=== PATIENT | male | born 1975 | race Caucasian/White ===

== ENCOUNTER → 2019-01-27 | Outpatient (REF) | payer OTHER | LOC: M SFHCLERA 11:27 | PROVIDERS: ATTEND Nurse Practitioner Family | DX: Z87.898 Personal history of other specified conditions (principal) ==

== ENCOUNTER → 2019-01-30 | Outpatient (CLI) | payer BC, OTHER ==
--- NOTE | 2019-01-30 12:19 | REP ---
PA and lateral chest: Comparison 08/24/2007. The lung meza are clear. The cardiac size is normal. The saud, mediastinum, and skeletal structures are unremarkable except for mild thoracic spine scoliosis convex right in the lower thoracic level. . Impression: Negative PA and lateral chest. There is no interval change. Electronically Signed by Gil Inman MD 01/30/2019 12:11 P
== END ==
LOC: M LRY 11:03
PROVIDERS: ATTEND Physician Assistant
DX: R50.9 Fever, unspecified (principal); R05 Cough

== ENCOUNTER → 2019-10-08 | Outpatient (CLI) | payer BC, OTHER ==
[2019-10-12 00:06] LABS: Lyme Disease IgG/IgM Antibodie <0.91 ISR (0.00-0.90); Lyme Disease IgM Ab Quantitati <0.80 index (0.00-0.79)
== END ==
LOC: M WUC 13:22
PROVIDERS: ATTEND Physician Assistant
DX: S70.362A Insect bite (nonvenomous), left thigh, initial encounter (principal)

== ENCOUNTER → 2020-03-29 | Outpatient (CLI) | payer BC, OTHER | LOC: M LABSMTC 10:14 | PROVIDERS: ATTEND Family Medicine | DX: Z11.59 Encounter for screening for other viral diseases (principal); Z20.828 Contact with and (suspected) exposure to other viral communicable diseases ==

== ENCOUNTER → 2020-10-23 | Outpatient (CLI) | payer SELFPAY | LOC: M LABSMTC 12:58 | PROVIDERS: ATTEND Pediatrics | DX: Z20.828 Contact with and (suspected) exposure to other viral communicable diseases (principal) ==

== ENCOUNTER → 2023-04-28 | Outpatient (REF) | payer OTHER | LOC: M LAB REF 12:28 | PROVIDERS: ATTEND Internal Medicine | DX: E56.9 Vitamin deficiency, unspecified (principal) ==

== ENCOUNTER → 2024-05-02 | Outpatient (REF) | payer OTHER | LOC: M LAB REF 12:33 | PROVIDERS: ATTEND Internal Medicine | DX: D48.5 Neoplasm of uncertain behavior of skin (principal); Z79.899 Other long term (current) drug therapy ==

== ENCOUNTER → 2025-03-29 | Outpatient (CLI) | payer OTHER | LOC: M WUC 11:00 | PROVIDERS: ATTEND Nurse Practitioner Family | DX: R10.30 Lower abdominal pain, unspecified (principal) ==